=== PATIENT | male | born 1965 | race Native Hawaiian/Other Pacific Islander ===

== ENCOUNTER 2018-09-15 16:41 | Outpatient (CLI) | payer OTHER ==
[2018-09-15 17:25] LABS: Amorphous Crystals,Urine Few; Bacteria,Urine 1+ /HPF (Negative); Bilirubin,Urine NEG (Negative); Blood,Urine NEG (Negative); Color,Urine Yellow (Yellow); Mucus,Urine 1+ /HPF; Protein,Urine <15 mg/dL mg/dL (Negative); Urobilinogen,Urine < 2.0 mg/dL (<2.0)
== END 2018-09-15 16:42 | disposition home or self-care (01) ==
LOC: LAB 16:41
PROVIDERS: ATTEND Internal Medicine
DX: N39.0 Urinary tract infection, site not specified (principal)
CPT/HCPCS: 81001; 87086; 87591

== ENCOUNTER 2019-01-06 09:44 | Outpatient (CLI) | payer OTHER ==
[2019-01-06 11:06] LABS: Hematocrit 46.4 % (35.5-45.6); Hemoglobin 16.3 gm/dl (11.8-15.2); Mean Corpuscular HGB Conc 35 % (32-34); Mean Corpuscular Volume 89 fl (84-94); Platelet Count 238 K/mm3 (140-440); Red Blood Count 5.22 M/mm3 (3.65-5.03); Red Cell Distribution Width 12.8 % (13.2-15.2)
[2019-01-06 11:09] LABS: Bilirubin,Urine NEG (Negative); Blood,Urine NEG (Negative); Color,Urine Yellow (Yellow); Mucus,Urine FEW /HPF; Protein,Urine <15 mg/dL mg/dL (Negative); Urobilinogen,Urine < 2.0 mg/dL (<2.0)
[2019-01-06 11:26] LABS: Alanine Aminotransferase 24 units/L (7-56); Albumin 4.7 g/dL (3.9-5); BUN/Creatinine Ratio 21; Blood Urea Nitrogen 15 mg/dL (9-20); Calcium 9.3 mg/dL (8.4-10.2); Hemolysis Index 13; LDL Cholesterol,Direct 134 mg/dL (50-130)
[2019-01-06 11:37] LABS: Chol/HDL Ratio 3.75 %; HDL Cholesterol 48 mg/dL (40-59)
[2019-01-09 07:08] LABS: Vitamin D, 25-OH, D2 <4 ng/mL
== END 2019-01-06 09:45 | disposition home or self-care (01) ==
LOC: LAB 09:44
PROVIDERS: ATTEND Internal Medicine
DX: Z13.220 Encounter for screening for lipoid disorders (principal); Z13.1 Encounter for screening for diabetes mellitus; Z13.21 Encounter for screening for nutritional disorder; Z12.5 Encounter for screening for malignant neoplasm of prostate; N39.0 Urinary tract infection, site not specified
CPT/HCPCS: 36415; 80053; 80061; 81001; 82306; 82607; 83036; 84153; 84443; 85027; 87591

== ENCOUNTER 2019-01-27 15:41 | Outpatient (CLI) | payer OTHER ==
--- NOTE | 2019-01-27 19:14 | Ultrasound Report ---
Testicular ultrasound. 01/27/2019. HISTORY: Palpable abnormality. FINDINGS: Right testicle measures 4.4 cm. Left testicle measures 4 cm. The testicles are normal in ap pearance and demonstrate appropriate flow. A hypoechoic well-circumscribed area at the site of palpable abnormality measures 8 x 7 x 6 mm. This demonstrates internal flow. Small hydroceles are present bilaterally. IMPRESSION: 1. Testicles unremarkable in appearance. 2. Indeterminate hypoechoic lesion at the site of palpable abnormality. This is separate from the cait ticle. Signer Name: Lyle Tanner MD Signed: 01/27/2019 7:10 PM Workstation Name: [id number]
== END 2019-01-27 15:42 | disposition home or self-care (01) ==
LOC: US 15:41
PROVIDERS: ATTEND Internal Medicine
DX: R22.2 Localized swelling, mass and lump, trunk (principal)
CPT/HCPCS: 93975

== ENCOUNTER 2022-01-20 21:28 | Emergency (ER) | payer OTHER ==
[2022-01-20 23:14] LABS: Basophils # (Auto) 0.2 K/mm3 (0.0-0.1); Basophils % (Auto) 1.4 % (0.0-1.8); Eosinophils % (Auto) 0.3 % (0.0-4.3); Hematocrit 45.9 % (35.5-45.6); Hemoglobin 15.6 gm/dl (11.8-15.2); Mean Corpuscular HGB Conc 34 % (32-34); Mean Corpuscular Volume 90 fl (84-94); Monocytes # (Auto) 0.6 K/mm3 (0.0-0.8); Monocytes % (Auto) 3.7 % (0.0-7.3); Platelet Count 272 K/mm3 (140-440); Red Blood Count 5.11 M/mm3 (3.65-5.03); Red Cell Distribution Width 13.1 % (13.2-15.2)
[2022-01-20 23:29] LABS: Calcium 9.1 mg/dL (8.4-10.2)
--- NOTE | 2022-01-21 00:07 | XRay Report ---
. XR abdomen 2V INDICATION / CLINICAL INFORMATION: Nausea, Vomiting and Diarrhea. COMPARISON: None available. FINDINGS: TUBES / LINES: None. CHEST: Visualized chest shows no significant abnormality. BOWEL GAS PATTERN: Bowel gas pattern is nonobstructive. No dilated loops of small bowel identified. M oderate colonic stool in the right colon. FREE AIR / EXTRALUMINAL GAS: None seen. ADDITIONAL FINDINGS: No significant additional findings. IMPRESSION: No acute radiographic abnormality of the abdomen. Signer Name: Tab Bernardo MD Signed: 01/21/2022 12:02 AM Workstation Name: [id number]
[2022-01-21] MEDS ORDERED: ONDANSETRON 4 MG/2 ML INJ IV ONE ×2 (02:07→05:27)
[2022-01-21] MEDS ORDERED: SODIUM CHLORIDE 0.9% 1000 ML 1,000 ML IV ONE (02:07)
[2022-01-21] MEDS ORDERED: FAMOTIDINE 20 MG/2 ML INJ IV ONE (02:07)
[2022-01-21] MEDS ORDERED: MORPHINE 4 MG/1 ML INJ IV ONE (02:08)
--- NOTE | 2022-01-21 03:40 | Cat Scan Report ---
CT ABDOMEN AND PELVIS WITHOUT CONTRAST INDICATION / CLINICAL INFORMATION: Left flank pain, N/V. TECHNIQUE: Axial CT images were obtained through the abdomen and pelvis without IV contrast. All CT scans at this location are performed using CT dose reduction for ALARA by means of automated exposure control. COMPARISON: None available. FINDINGS: LOWER CHEST: No significant abnormality LIVER: Hepatic steatosis. GALLBLADDER/BILIARY TREE: No significant abnormality PANCREAS: No significant abnormality SPLEEN: No significant abnormality ADRENALS: No significant abnormality RIGHT KIDNEY / URETER: No significant abnormality LEFT KIDNEY / URETER: Mild left asymmetric perinephric stranding and mild hydronephrosis related to 2 mm stone in the proximal left ureter. URINARY BLADDER: No significant abnormality REPRODUCTIVE ORGANS: No significant abnormality STOMACH / BOWEL: Small bowel is normal in caliber. Colonic diverticulosis without evidence of diverti culitis. The appendix is normal in caliber. LYMPH NODES: No significant adenopathy. VASCULATURE: No significant abnormality. OTHER: No free air, free fluid, or focal fluid collection is identified. SKELETAL SYSTEM: Degenerative changes of the spine. No acute osseous findings. IMPRESSION: 1. 2 mm stone in the proximal left ureter with mild left hydronephrosis and perinephric stranding. 2. No other acute findings. 3. Hepatic steatosis. Signer Name: Tab Bernardo MD Signed: 01/21/2022 3:36 AM Workstation Name: [id number]
[2022-01-21 03:55] LABS: Hyaline Casts,Urine 7 /LPF; Mucus,Urine 3+ /HPF
[2022-01-21 04:00] LABS: Color,Urine Yellow (Yellow)
[2022-01-21 04:01] LABS: Bilirubin,Urine Negative (Negative); Blood,Urine 2+ (Negative); Urobilinogen,Urine < 2.0 mg/dL (<2.0)
--- NOTE | 2022-01-21 05:06 | Emergency Department Report ---
ED Abdominal Pain HPI - General Chief Complaint: Nausea/Vomiting/Diarrhea Stated Complaint: ABD PAIN/VOMITING Source: patient Mode of arrival: Ambulatory Limitations: No Limitations - History of Present Illness Initial Comments: Patient is a 56-year-old male with a history of kidney stone who presents to the ED with complaint of acute onset persistent left flank pain that radiates to the left lower quadrant area with intractable nausea and vomiting for the last 12 hours. Patient states that he has had multiple vomiting episodes and is unable to keep anything down especially in the last 6 hours. Patient denies fever, chills, testicular pain, hematuria, dysuria, urinary frequency and urgency, diarrhea, traumatic injury, heavy lifting, low back pain, numbness and tingling or weakness of lower extremities bilaterally or lightheadedness. MD Complaint: abdominal pain (left flank pain), flank pain (left flank pain), other (nausea and vomitin) -: hour(s) (12) Location: LLQ, suprapubic, L flank Radiation: LLQ, suprapubic, L flank Migration to: no migration Severity: severe Severity scale (0 -10): 10 Quality: aching, sharp Consistency: constant Improves With: nothing Worsens With: nothing Associated Symptoms: denies other symptoms, nausea, vomiting, anorexia. denies: diarrhea, fever, chills, constipation, dysuria, hematemesis, hematochezia, melena, hematuria, syncope - Related Data Previous Rx's Medication Instructions Recorded Last Taken Type Ciprofloxacin HCl 500 mg PO Q12H #20 tab 01/21/22 Unknown Rx Ketorolac [Toradol] 10 mg PO Q8H PRN #20 tab 01/21/22 Unknown Rx Ondansetron [Zofran Odt] 4 mg PO Q6HR PRN #20 tab.rapdis 01/21/22 Unknown Rx Tamsulosin [Flomax] 0.4 mg PO QDAY #15 cap 01/21/22 Unknown Rx oxyCODONE /ACETAMINOPHEN [Percocet 1 tab PO Q6HR PRN #12 tablet 01/21/22 Unknown Rx 5/325] Allergies Allergy/AdvReac Type Severity Reaction Status Date / Time No Known Allergies Allergy Unverified 01/20/22 21:45 ED Review of Systems ROS: Stated complaint: ABD PAIN/VOMITING Other details as noted in HPI Constitutional: denies: chills, fever Eyes: denies: eye pain, eye discharge, vision change ENT: denies: ear pain, throat pain Respiratory: denies: cough, shortness of breath, wheezing Cardiovascular: denies: chest pain, palpitations Endocrine: no symptoms reported Gastrointestinal: abdominal pain (left flank pain), nausea, vomiting. denies: diarrhea Genitourinary: denies: urgency, dysuria Musculoskeletal: denies: back pain, joint swelling, arthralgia Skin: denies: rash, lesions Neurological: denies: headache, weakness, paresthesias Psychiatric: denies: anxiety, depression Hematological/Lymphatic: denies: easy bleeding, easy bruising ED Past Medical Hx - Past Medical History Previous Medical History?: Yes Hx Kidney Stones: Yes - Surgical History Past Surgical History?: No - Social History Smoking Status: Unknown if ever smoked - Medications Home Medications: Home Medications Medication Instructions Recorded Confirmed Last Taken Type Ciprofloxacin HCl 500 mg PO Q12H #20 tab 01/21/22 Unknown Rx Ketorolac [Toradol] 10 mg PO Q8H PRN #20 tab 01/21/22 Unknown Rx Ondansetron [Zofran Odt] 4 mg PO Q6HR PRN #20 tab.rapdis 01/21/22 Unknown Rx Tamsulosin [Flomax] 0.4 mg PO QDAY #15 cap 01/21/22 Unknown Rx oxyCODONE /ACETAMINOPHEN [Percocet 1 tab PO Q6HR PRN #12 tablet 01/21/22 Unknown Rx 5/325] ED Physical Exam - General Limitations: No Limitations General appearance: alert, in no apparent distress - Head Head exam: Present: atraumatic, normocephalic, normal inspection - Eye Eye exam: Present: normal appearance, PERRL, EOMI Pupils: Present: normal accommodation - ENT ENT exam: Present: normal exam, normal orophraynx, mucous membranes moist, TM's normal bilaterally, normal external ear exam - Neck Neck exam: Present: normal inspection, full ROM. Absent: tenderness - Respiratory Respiratory exam: Present: normal lung sounds bilaterally. Absent: respiratory distress, wheezes, rales, rhonchi, chest wall tenderness, accessory muscle use, decreased breath sounds - Cardiovascular Cardiovascular Exam: Present: regular rate, normal rhythm, normal heart sounds. Absent: systolic murmur, diastolic murmur, rubs, gallop - GI/Abdominal GI/Abdominal exam: Present: soft, tenderness (Palpable left flank and LLQ tenderness), normal bowel sounds. Absent: guarding, rebound, hyperactive bowel sounds, organomegaly, mass, bruit - Extremities Exam Extremities exam: Present: normal inspection, full ROM, normal capillary refill. Absent: tenderness - Back Exam Back exam: Present: normal inspection, full ROM. Absent: tenderness, CVA tenderness (R), CVA tenderness (L), muscle spasm, paraspinal tenderness, vertebral tenderness - Neurological Exam Neurological exam: Present: alert, oriented X3, CN II-XII intact, normal gait, reflexes normal - Psychiatric Psychiatric exam: Present: normal affect, normal mood - Skin Skin exam: Present: warm, dry, intact, normal color. Absent: rash ED Course Vital Signs 01/20/22 01/21/22 21:40 04:01 Temperature 97.9 F Pulse Rate 65 Respiratory 16 16 Rate Blood Pressure 134/92 Blood Pressure 134/92 [Right] O2 Sat by Pulse 97 Oximetry ED Medical Decision Making - Lab Data Result diagrams: 01/20/22 22:58 01/20/22 22:58 - Radiology Data Radiology results: report reviewed, [place] [address] Cat Scan Report Signed Patient: KIKO NEWTON MR#: [id number] : 1965 Acct:[id number] Age/Sex: 56 / M ADM Date: 01/20/22 Loc: ED Attending Dr: Ordering Physician: JONI SCHUMACHER Date of Service: 01/21/22 Procedure(s): CT abdomen pelvis wo con Accession Number(s): [id number] cc: JONI SCHUMACHER CT ABDOMEN AND PELVIS WITHOUT CONTRAST INDICATION / CLINICAL INFORMATION: Left flank pain, N/V. TECHNIQUE: Axial CT images were obtained through the abdomen and pelvis without IV contrast. All CT scans at this location are performed using CT dose reduction for ALARA by means of automated exposure control. COMPARISON: None available. FINDINGS: LOWER CHEST: No significant abnormality LIVER: Hepatic steatosis. GALLBLADDER/BILIARY TREE: No significant abnormality PANCREAS: No significant abnormality SPLEEN: No significant abnormality ADRENALS: No significant abnormality RIGHT KIDNEY / URETER: No significant abnormality LEFT KIDNEY / URETER: Mild left asymmetric perinephric stranding and mild hydronephrosis related to 2 mm stone in the proximal left ureter. URINARY BLADDER: No significant abnormality REPRODUCTIVE ORGANS: No significant abnormality STOMACH / BOWEL: Small bowel is normal in caliber. Colonic diverticulosis without evidence of diverticulitis. The appendix is normal in caliber. LYMPH NODES: No significant adenopathy. VASCULATURE: No significant abnormality. OTHER: No free air, free fluid, or focal fluid collection is identified. SKELETAL SYSTEM: Degenerative changes of the spine. No acute osseous findings. IMPRESSION: 1. 2 mm stone in the proximal left ureter with mild left hydronephrosis and perinephric stranding. 2. No other acute findings. 3. Hepatic steatosis. Signer Name: Nava Bernardo MD Signed: 01/21/2022 3:36 AM Workstation Name: [id number] Transcribed By: FLOR Dictated By: NAVA BERNARDO MD Electronically Authenticated By: NAVA BERNARDO MD Signed Date/Time: 01/21/22335 DD/ 3 TD/TT: - Medical Decision Making This is a 56-year-old male with a history of kidney stone who presents to the ED with complaint of acute onset persistent left flank pain that radiates to the left lower quadrant area with intractable nausea and vomiting for the last 12 hours. Patient states that he has had multiple vomiting episodes and is unable to keep anything down especially in the last 6 hours. In the ED, patient is alert and oriented x3 and is not in any distress. Patient is hemodynamically stable. Patient was treated in the ED for pain and also given antiemetics and normal saline 1 L IV bolus x1. Lab test results were reviewed and showed acute leukocytosis of 15,600 and creatinine of 1.5 consistent with dehydration. Urinalysis showed gross hematuria with no sign of urinary tract infection. The abdomen pelvis CT scan without contrast showed a 2 mm stone in the proximal left ureter with mild left hydronephrosis and perinephric stranding. No other acute findings were identified. On reevaluation, patient's pain is well controlled medication. Patient however was treated with Flomax in the ED and also given Rocephin 1 g IV. Patient was discharged home on pain medications and antiemetics and advised to follow-up with his urologist or with Dr. Gill the urologist for further evaluation in 3 to 5 days. Patient was also advised to return to the ED immediately if symptoms get worse. - Differential Diagnosis kidney stones; UTI; Diverticulitis; Gastroenteritis; appendicitis, SBO Critical care attestation.: If time is entered above; I have spent that time in minutes in the direct care of this critically ill patient, excluding procedure time. ED Disposition Clinical Impression: Acute left flank pain, Nausea and vomiting in adult patient, Kidney stone on left side Disposition: HOME / SELF CARE / HOMELESS Is pt being admited?: No Does the pt Need Aspirin: No Condition: Stable Instructions: Kidney Stones, [id number], Flank Pain, Adult, [id number], Renal Colic, [id number], Abdominal Pain, Adult, [id number], Nausea and Vomiting, Adult, [id number] Additional Instructions: All lab test results were reviewed and are all nonactionable except for acute leukocytosis of 15,600 and creatinine of 1.5 consistent with dehydration. Urinalysis is unremarkable except for gross hematuria. Abdomen pelvis CT scan without contrast showed a 2 mm stone in the proximal left ureter with mild left hydronephrosis and perinephric stranding. Therefore take medication with food, drink plenty of fluids, follow-up with the urologist Dr. Gill in 3 to 5 days for reevaluation or return to the ED immediately if symptoms get worse. Prescriptions: Ciprofloxacin HCl 500 mg PO Q12H #20 tab Tamsulosin [Flomax] 0.4 mg PO QDAY #15 cap oxyCODONE /ACETAMINOPHEN [Percocet 5/325] 1 tab PO Q6HR PRN #12 tablet PRN Reason: Pain Ketorolac [Toradol] 10 mg PO Q8H PRN #20 tab PRN Reason: Pain Ondansetron [Zofran Odt] 4 mg PO Q6HR PRN #20 tab.rapdis PRN Reason: Nausea Referrals: SHAYE GILL MD [Staff Physician] - 3-5 Days Forms: Work/School Release Form(ED) Time of Disposition: 05:23 Print Language: LITHUANIAN
[2022-01-21] MEDS ORDERED: TAMSULOSIN 0.4 MG CAP PO ONE (05:27)
[2022-01-21] MEDS ORDERED: KETOROLAC 30 MG/1 ML INJ IV ONE (05:27)
[2022-01-21] MEDS ORDERED: cefTRIAXone/NS 1 GM/50 ML 1 GM/50 ML BAG IV ONE (05:27)
[2022-01-21 07:14] VITALS: BP 125/79
--- NOTE | 2022-01-22 10:57 | Electrocardiograph Report ---
[facility] Test Date: 2022-01-20 Test Time: 21:36:18 Pat Name: KIKO NEWTON Department: Room: Gender: M Public Health Nutritionist: MAGDALENA : 1965 Requested By: RAIZA HARLEY Order Number: [id number] Reading MD: Ricardo Esquivel Measurements Intervals [place] Rate: 70 P: 74 MA: 135 QRS: 86 QRSD: 97 T: 40 QT: 401 QTc: 434 Interpretive Statements Sinus rhythm No previous ECG available for comparison Electronically Signed On 01-22-2022 10:57:21 EDT by Ricardo Esquivel
== END 2022-01-21 07:15 | disposition home or self-care (01) ==
LOC: ED 21:28
DX: R10.32 Left lower quadrant pain (principal); R11.2 Nausea with vomiting, unspecified; N20.0 Calculus of kidney
CPT/HCPCS: 36415; 74019; 74176; 80048; 81001; 85025; 93005; 96361; 96374; 96375; 99284; J2270; J2405; J3490; J7030